=== PATIENT | male | born 1970 | race Caucasian/White ===

== ENCOUNTER 2016-10-30 09:52 | Inpatient (IN) | payer BC ==
[~2016-10-30 09:52] MED LIST: POVIDONE-IODINE 20 ML in SODIUM CL IRRIG SOLUTION 500 ML IRR ONE; ROPIVACAINE 0.2% 80 MG, EPINEPHrine 0.2 MG, KETOROLAC TROMETHAMINE 30 MG in BAG 0 ML IU ONE; TRANEXAMIC ACID 2,000 MG in NS 100 ML IV ONE; ceFAZolin 1 GM/5 ML SYR ONE
[2016-10-30] MEDS ORDERED: DEXAMETHASONE 4 MG/ML VIAL IVP ONE (10:13)
[2016-10-30] MEDS ORDERED: FAMOTIDINE 20 MG TAB PO ONE (10:13)
[2016-10-30] MEDS ORDERED: ACETAMINOPHEN 325 MG TAB PO ONE (10:13)
[2016-10-30] MEDS ORDERED: ceFAZolin 2 GM/DEXTROSE 100 ML IV ONE (10:13)
[2016-10-30] MEDS ORDERED: LIDOCAINE 1% 2 ML INJ ID PRN (10:14)
[2016-10-30] MEDS ORDERED: LR 1,000 ML IV ONE (10:14)
[2016-10-30] MEDS ORDERED: DEXAMETHASONE 4 MG/ML VIAL ONE ×2 (10:53→12:36)
--- NOTE | 2016-10-30 11:29 | PDHPUP ---
History & Physical Update H&P update statement: This history and physical update is based on an assessment of the patient which was completed after admission or registration (within 24 hours), but prior to the surgery/procedure. H&P update: H&P reviewed & patient examined, no change in patient's condition since H&P completed
[2016-10-30] MEDS ORDERED: MIDAZOLAM 2 MG/2 ML VIAL ONE (11:49)
[2016-10-30] MEDS ORDERED: fentaNYL 100 MCG/2 ML INJ ONE ×2 (11:50→12:32)
[2016-10-30] MEDS ORDERED: PROPOFOL/EMULSION 500 MG/50 ML BOTTLE IV ONE (11:50)
[2016-10-30] MEDS ORDERED: MIDAZOLAM 2 MG/2 ML VIAL IVP ONE (11:53)
--- NOTE | 2016-10-30 11:54 | PDANEPAE ---
ANE History of Present Illness Patient presents for R BHR ANE Past Medical History - Cardiovascular History Hx Hypertension: Yes Hx Arrhythmias: No Hx Chest Pain: No Hx Coronary Artery / Peripheral Vascular Disease: No Hx CHF / Valvular Disease: No Hx Palpitations: No - Pulmonary History Hx COPD: No Hx Asthma/Reactive Airway Disease: No Hx Recent Upper Respiratory Infection: No Hx Oxygen in Use at Home: No Hx Sleep Apnea: No Sleep Apnea Screening Result - Last Documented: Negative Pulmonary History Comment: CHILDHOOD ASTHMA - Neurologic History Hx Cerebrovascular Accident: No Hx Seizures: No Hx Dementia: No - Endocrine History Hx Diabetes: No - Renal History Hx Renal Disorders: No - Liver History Hx Hepatic Disorders: No - Neurological & Psychiatric Hx Hx Neurological and Psychiatric Disorders: No - Cancer History Hx Cancer: No - Congenital Disorder History Hx Congenital Disorders: No - GI History Hx Gastrointestinal Disorders: No - Other Health History Other Health History: NEG - Chronic Pain History Chronic Pain: Yes (R HIP PAIN) - Surgical History Prior Surgeries: NONE ANE Review of Systems - Exercise capacity Exercise capacity: limited by disability METS (RN): 5 METS ANE Patient History - Allergies Allergies/Adverse Reactions: No Known Allergies Allergy (Unverified 10/10/16 16:32) - Home Medications Home medications: home medication list seen and reviewed Home Medications: Advil 10/10/16 [Last Taken 10/24/16] Herbals/Supplements -Info Only 10/10/16 [Last Taken 10/16/16] Lisinopril-Hctz 10-12.5 mg Tab 10/10/16 [Last Taken 10/29/16 06:00] - NPO status NPO Status: no food or drink >8 hours NPO Since - Liquids (Date): 10/29/16 NPO Since - Liquids (Time): 20:00 NPO Since - Solids (Date): 10/29/16 NPO Since - Solids (Time): 20:00 - Anes Hx Anes Hx: no prior problems - Smoking Hx Smoking Status: Former smoker - Family Anes Hx Family Hx Anesthesia Complications: NEG ANE Labs/Vital Signs - Vital Signs Blood Pressure: 143/88 Heart Rate: 64 Respiratory Rate: 16 O2 Sat (%): 95 Height: 185.42 cm Weight: 99.79 kg ANE Physical Exam - Airway Neck exam: FROM Mallampati Score: Class 2 Mouth exam: small mouth opening - Pulmonary Pulmonary: no respiratory distress - Cardiovascular Cardiovascular: regular rate and rhythym - ASA Status ASA Status: II ANE Anesthesia Plan Anesthesia Plan: spinal (rba discussed)
[2016-10-30] MEDS ORDERED: LIDOCAINE 2% 5 ML SDV ONE (12:14)
[2016-10-30] MEDS ORDERED: ONDANSETRON 4 MG/2 ML VIAL ONE (12:36)
[2016-10-30] MEDS ORDERED: HYDROmorphONE/DILAUDID 2 MG/ML INJ ONE (12:53)
[2016-10-30] MEDS ORDERED: OXYCODONE/APAP 5/325 TAB PO PRN (13:12)
[2016-10-30] MEDS ORDERED: D5W LR 500 ML IV PRN (13:12)
[2016-10-30] MEDS ORDERED: HYDROCODONE/APAP 5/325 TAB PO PRN (13:12)
[2016-10-30] MEDS ORDERED: ONDANSETRON 4 MG/2 ML VIAL IVP PRN ×2 (13:12→14:06)
[2016-10-30] MEDS ORDERED: NALOXONE HCL 0.4 MG/ML INJ IVP PRN (13:12)
--- NOTE | 2016-10-30 13:53 | POSTOPPROG ---
Post Op Note Date of Operation: 10/30/16 Surgeon: Augusto Holder Tab Cutting Machine Operator: Abhinav Anesthesiologist: Javier Anesthesia: GET(General Endotracheal) Post-op Diagnosis: right hip arthritis Procedure: R BHR Inf/Abcess present in the surg proc area at time of surgery?: No EBL: 100-500
[2016-10-30] MEDS ORDERED: CYCLOBENZAPRINE 10 MG TAB PO PRN (14:06)
[2016-10-30] MEDS ORDERED: POLYETHYLENE GLYCOL 3350 17 GM PKT PO PRN (14:06)
[2016-10-30] MEDS ORDERED: NS 500 ML IV PRN (14:06)
[2016-10-30] MEDS ORDERED: LACTULOSE 20 GM/30 ML UDCUP PO PRN (14:06)
[2016-10-30] MEDS ORDERED: BISACODYL 10 MG SUPP PR PRN (14:06)
[2016-10-30] MEDS ORDERED: PROMETHAZINE HCL 25 MG/ML INJ IVP PRN (14:06)
[2016-10-30] MEDS ORDERED: ONDANSETRON DISINTEGRATING 4 MG TAB PO PRN (14:06)
[2016-10-30] MEDS ORDERED: TEMAZEPAM 15 MG CAP PO PRN (14:06)
[2016-10-30] MEDS ORDERED: MAGNESIUM HYDROXIDE 30 ML UDCUP PO PRN (14:06)
[2016-10-30] MEDS ORDERED: DIPHENOXYLATE/ATROPINE LOMOTIL 1 TAB PO PRN (14:06)
[2016-10-30] MEDS ORDERED: traMADol 50 MG TAB PO PRN (14:06)
[2016-10-30] MEDS ORDERED: METOCLOPRAMIDE 10 MG/2 ML VIAL IVP PRN (14:06)
[2016-10-30] MEDS ORDERED: PROMETHAZINE HCL 25 MG SUPPR PR PRN (14:06)
[2016-10-30] MEDS ORDERED: diphenhydrAMINE 25 MG CAP PO PRN (14:06)
[2016-10-30] MEDS ORDERED: HYDROmorphONE/DILAUDID 1 MG/ML SYR ONE (14:18)
[2016-10-30] MEDS: HYDROmorphONE/DILAUDID 1 MG/ML SYR IVP PRN ×4 (14:18→14:51)
[2016-10-30] MEDS ORDERED: LR 1,000 ML IV SCH (14:30)
--- NOTE | 2016-10-30 14:37 | POSTANESTH ---
Post Anesthetic Evaluation Cardiovascular Status: Normal, Stable Respiratory Status: Normal, Stable Level of Consciousness/Mental Status: Can Participate in Eval Pain Control: Adequate, Prn Tx Ordered Nausea/Vomiting Control: Adequate, Prn Tx Ordered Complications Possibly Related to Anesthesia: None Noted
[2016-10-30 15:19] VITALS: RESP 16
--- NOTE | 2016-10-30 15:43 | GOP ---
[f rep st] OPERATIVE REPORT DATE OF OPERATION: 10/30/2016 SURGEON: Augusto Holder MD NARRATIVE WRITER: Alonso Bermudez CFA and DOMINICK Parks. ANESTHESIA: General. ANESTHESIOLOGIST: Esau Herrera MD PREOPERATIVE DIAGNOSIS: Right hip severe degenerative arthritis. POSTOPERATIVE DIAGNOSIS: Right hip severe degenerative arthritis. PROCEDURE PERFORMED: Right hip [place] hip resurfacing arthroplasty. FINDINGS: DESCRIPTION OF PROCEDURE: The patient was given 2 g of IV Ancef preoperatively within 60 minutes of surgery. He also received IV tranexamic acid at a dose of 20 mg/kg. [facility] and Dr. Herrera attempted spinal anesthesia. This was unsuccessful. The patient was the n given general anesthesia. A Rojas catheter was not used. He wore a LUCRECIA stocking and SCD on the n onoperative leg. He was rolled to the left lateral decubitus position. An axillary roll was used, and all pressure points were carefully padded. The position was secured with the pegboard table att achment. I was careful to lock his pelvis in a vertical position. His perineum was isolated with p last adhesive drapes. The right hip and right lower extremity were prepped with ChloraPrep. They were draped free using sterile sheets, stockinette, and Ioban plastic drape. The [employer] time-out was performed to verify the correct patient identity and the correct surgical side and site. The [place] time-out was also performed. I made a 7-inch straight oblique posterolateral hip skin incision. The subcutaneous tissues were sh arply divided, and hemostasis was obtained using electrocautery. He had a fairly muscular buttocks and thigh. The fascia malorie was identified and split along the axis of its fibers. I then curved po steriorly and proximally, and split the fascia of the gluteus rosemary, and bluntly split the muscle fibers in line with their orientation. His sciatic nerve was identified and protected throughout th e procedure. The Charnley self-retaining retractor was inserted. The external rotators and the pos terior hip capsule were divided as separate layers at the base of the femoral neck, tagged and refle cted posteriorly. The gluteus rosemary tendon was divided and tagged in order to improve exposure an d release tension on the sciatic nerve. The hip was dislocated posteriorly. I used a sizing gauge to check the diameter of the neck and concluded that 50 mm was the proper head size. I performed a circumferential capsulotomy. I was able to retract the femoral head anteriorl y and superiorly, and hold it out of place with appropriate retractors. The remnant of the damaged labrum was completely excised. His acetabulum was reamed sequentially up to 56 mm. I selected the Nelson monoblock porous-coated acetabular component with an outside diameter of 56 mm. This was firmly impacted and was a very tight fit. I was careful to determine proper inclination and anteve rsion. I used the transverse acetabular ligament and other acetabular bony landmarks to help me pro perly orient the cup. Some small posterior inferior osteophytes were removed with an osteotome and rongeur. I was careful to leave a good lip of bone and capsule extending beyond the anterior-inferi or lip of the metal cup. I then returned to preparation of the femoral head. Using appropriate jigs and guides, I inserted a guide pin into the femoral head and neck. I was careful to position in such a way that there would be no notching of the neck. The large sterile metal goniometer was used to check the neck-shaft an gle. I reamed over the guide pin and inserted the reaming guide. I then used the cylindrical reame r down to the head and neck junction. This was followed by the flat reamer and the chamfer reamer. The head was sized for 50 mm. There was no impingement or damage to the neck. He had some moderat gena large, firm, smooth anterior neck osteophytes, which I removed with a rongeur. I drilled a smal l hole in the lesser trochanter and inserted a suction cannula to create negative pressure in the me dullary canal. Small holes were drilled on the flattened chamfer surfaces of the prepared head for cement anchors. The head was thoroughly cleaned with the pulsating lavage and carefully dried. I used a CarboJet de vice to blow dry the cancellous surfaces. A single batch of Simplex cement with tobramycin was mixe d. At about 50 seconds, I poured the liquid cement into the head component, inserted it onto the pr epared femoral head and impacted it into place. Excess cement was removed before it hardened. The acetabulum was irrigated and cleaned, and inspected, and the hip was reduced. Stability and range o f motion were checked. I placed my finger along the anterior aspect of the acetabular component and flexed the hip to 110 degrees. There was no anterior impingement. The suction cannula on the less er trochanter was removed. The wound was thoroughly irrigated with a dilute Betadine solution. The n, 40 mL of the joint anesthetic cocktail was injected into the capsule, the deep musculature, and t he subcutaneous tissues along the skin edges. His sciatic nerve was reinspected and looked unharmed. The external rotators and the posterior hip capsule were repaired in separate layers with two #2 FiberWire sutures through drill holes in the gr eater trochanter. This provided a strong posterior capsular and external rotator repair. The glute us rosemary tendon was repaired with 2 interrupted [id number] #2 FiberWire sutures. The fascia malorie was repaired first with 2 interrupted [id number] #2 FiberWire sutures, followed by a runni ng #2 barbed Ethicon Stratafix PDO suture. The subcutaneous tissues were closed with a running 0 ba rbed Ethicon Stratafix Monoderm suture. The skin was closed with a running 3-0 barbed Ethicon Strat afix Monoderm subcuticular suture. The skin edges were reapproximated and sealed with Dermabond glu e. The wound was covered with a strip of Telfa, and everything was held in place with a piece of cl ear plastic Tegaderm. The estimated blood loss was about 400 mL. I used a [employer] Nelson hip resurfacing system. The acetabular component was 56 mm in diameter and press-fit. The femoral head was 50 mm and cemented. He was awakened from anesthesia a nd rolled to the supine position on his [facility]. A long-leg compressive stocking and SCD we re applied to the operative leg. He wore a stocking and SCD on the nonoperative leg during the proc edure. An abduction pillow was placed between his knees. He was taken to PACU in satisfactory cond ition. There were no recognized intraoperative complications. The sponge and needle count were correct on 2 occasions. Alonso Bermudez and Luc Ramirez acted as surgical assistants. Their assistance was a medical neces sity for safe completion of the procedure. /[id number]/[facility]
[2016-10-30] MEDS: KETOROLAC 30 MG/1 ML SDV IVP PRN (15:50)
[2016-10-30] MEDS: oxyCODONE IR 5 MG TAB PO PRN (15:52)
[2016-10-30] MEDS: ACETAMINOPHEN 325 MG TAB PO SCH (19:50)
[2016-10-30] MEDS: ceFAZolin 2 GM/DEXTROSE 100 ML IV SCH (20:16)
[2016-10-30] MEDS: ASPIRIN 325 MG TAB PO SCH (20:18)
[2016-10-30] MEDS: FAMOTIDINE 20 MG TAB PO SCH (20:19)
[2016-10-30] MEDS: SENNOSIDES/DOCUSATE SODIUM TAB PO SCH (20:19)
[2016-10-31] MEDS: ACETAMINOPHEN 325 MG TAB PO SCH ×2 (00:04→05:44)
[2016-10-31] MEDS: KETOROLAC 30 MG/1 ML SDV IVP PRN (03:38)
[2016-10-31] MEDS: ceFAZolin 2 GM/DEXTROSE 100 ML IV SCH (03:39)
[2016-10-31 05:13] LABS: HEMATOCRIT 37.3 % (40.0-51.0)
[2016-10-31 07:30] VITALS: BP 137/70; PULSE 88; TEMP 98.4; O2SAT 97
[2016-10-31] MEDS: ASPIRIN 325 MG TAB PO SCH (07:49)
[2016-10-31] MEDS: SENNOSIDES/DOCUSATE SODIUM TAB PO SCH (07:49)
[2016-10-31] MEDS: FAMOTIDINE 20 MG TAB PO SCH (07:50)
[2016-10-31] MEDS ORDERED: FERROUS SULFATE 140 MG TAB.ER PO SCH (09:00)
--- NOTE | 2016-10-31 09:20 | SOAPPROG ---
SOAP Progress Note Assessment/Plan: Assessment: Afebrile. Awake and alert. Moderate pain. He has been up and walking. His dressing is dry. Sciatic nerve intact. Postop films look excellent. H&H are good. Plan: Continue physical therapy today. Discharged later today. 10/31/16 09:19 Objective: Vital Signs Temp Pulse Resp BP Pulse Ox 36.9 C 88 16 137/70 H 97 10/31/16 07:28 10/31/16 07:28 10/31/16 07:28 10/31/16 07:28 10/31/16 07:28 Laboratory Results 10/31/16 04:48 10/30/16 10/31/16 11/01/16 05:59 05:59 05:59 Intake Total 4375 Output Total 200 Balance 4175 ICD10 Worksheet Patient Problems: Problems Problem Status Onset Osteoarthritis of right hip Acute
[2016-10-31] MEDS: oxyCODONE IR 5 MG TAB PO PRN (10:28)
--- NOTE | 2016-10-31 11:46 | GDS ---
[f rep st] DISCHARGE SUMMARY ADMISSION DIAGNOSIS: Right hip severe degenerative arthritis. DISCHARGE DIAGNOSES: Right hip severe degenerative arthritis. OPERATION PERFORMED: 10/30/2016, a right hip [place] hip resurfacing arthroplasty. POSTOPERATIVE COMPLICATIONS: None. CONDITION ON DISCHARGE: Improved. DESCRIPTION OF HOSPITAL COURSE: The patient was admitted to the hospital on the morning of surgery. The same day, under general anesthesia, he underwent a right hip [place] hip resurfacing arthro plasty. Postoperatively, he was treated with multimodal DVT prophylaxis, including aspirin and aggie y mobilization. On the first postoperative day, his hemoglobin and hematocrit were 13.0 and 37.3. He was seen by Physical Therapy and made excellent progress with ambulation and stairs. By the time of discharge, he was afebrile and was independent walking with a walker. DISPOSITION: The patient is discharged to his home. He will have home physical therapy. I will se e him back in the office on November 24, 2016. If there are any problems, he is to call me at the [facility]. He has prescriptions for oxycodone and tramadol for pain control. Continue aspirin 325 mg p .o. daily for 21 days. Use LUCRECIA stockings for 1 week. /[id number]/[facility]
== END 2016-10-31 10:33 | disposition home or self-care (01) | DRG 470 ==
LOC: F3N 09:52
PROVIDERS: ADMIT Orthopaedic Surgery; ATTEND Orthopaedic Surgery
PROC: 0SU90BZ Supplement Right Hip Joint with Resurfacing Device, Open Approach (ICD-10-PCS; principal; 2016-10-30 12:00)
DX: M16.11 Unilateral primary osteoarthritis, right hip (principal); I10 Essential (primary) hypertension
CPT/HCPCS: 97161-GP; 97165-GO; C1713; J0171; J0690; J1100; J1170; J1885; J2250; J2405; J2704; J2795; J3010